=== PATIENT | male | born 1955 | race Caucasian/White ===

== ENCOUNTER → 2017-10-16 | Outpatient (REF) | payer OTHER ==
[~2017-10-16] MED LIST: ACE325 PO; ALI300PT PO; AMLO-104 PO; AMOX-559 PO; ASPI-715 PO; CALC-598 PO; CALC500T6 PO; DOC100 PO; DOCU-416 PO; ERGO400T9 PO; GLUC-232 PO; IBU200 PO; IBUP400T13 PO; IBUP600T22 PO; LISI-362 PO; LOR5 PO; LOR5/325 PO; METO25TA93 PO; MULT-1335 PO; OMEG-26 PO; OXYB10TA16 PO; OXYB10TA21 PO; PHEN200T32 PO; PHENA100 PO; PHENA200 PO; TOLT2TAB5 PO; TOLT4CAP13 PO; VIT-22 PO; VITE400 PO
== END ==
LOC: ZZSENDIN 09:45
PROVIDERS: ATTEND Urology
DX: C67.9 Malignant neoplasm of bladder, unspecified (principal)
CPT/HCPCS: 88108

== ENCOUNTER → 2018-04-01 | Outpatient (REF) | payer OTHER | LOC: ZZSENDIN 12:00 | PROVIDERS: ATTEND Family Medicine | DX: L82.1 Other seborrheic keratosis (principal) | CPT/HCPCS: 88305 ==

== ENCOUNTER → 2018-07-08 | Outpatient (REF) | payer OTHER | LOC: ZZSENDIN 12:00 | PROVIDERS: ATTEND Urology | DX: C67.9 Malignant neoplasm of bladder, unspecified (principal) | CPT/HCPCS: 88108 ==